=== PATIENT | female | born 1970 | race Caucasian/White ===

== ENCOUNTER 2017-07-25 20:02 | Emergency (ER) | payer OTHER ==
[~2017-07-25] VITALS: Ht 170.2 cm; Wt 61.2 kg
[~2017-07-25 20:02] MED LIST: HYCET 7.5 MG-3473 ML PO
[2017-07-25] MEDS ORDERED: MEDROXYPROGESTE10 MG PO (20:50)
[2017-07-25 21:15] VITALS: BP 108/56
== END 2017-07-25 21:17 | disposition home or self-care (01) ==
LOC: M.ERS 20:02
DX: N93.8 Other specified abnormal uterine and vaginal bleeding (principal); Z88.0 Allergy status to penicillin

== ENCOUNTER 2018-03-22 17:00 | Emergency (ER) | payer OTHER ==
[~2018-03-22] VITALS: Ht 170.2 cm; Wt 65.8 kg
[~2018-03-22 17:00] MED LIST changes: +MEDROXYPROGESTE10 MG PO
[2018-03-22] MEDS ORDERED: CIPRO250 M1 PO (17:13)
[2018-03-22 17:27] LABS: URINE BILIRUBIN NEGATIVE (Negative); URINE BLOOD 2+ (Negative); URINE CLARITY CLEAR; URINE COLOR YELLOW; URINE GLUCOSE-RANDOM NEGATIVE (Negative); URINE KETONES NEGATIVE (Negative); URINE LEUKOCYTES-REFLEX NEGATIVE (Negative); URINE NITRITE-REFLEX NEGATIVE (Negative); URINE PROTEIN NEGATIVE (Negative); URINE SPECIFIC GRAVITY >= 1.030 (1.005-1.030); URINE UROBILINOGEN 0.2 E.U./dl (0.2-1.0)
[2018-03-22 17:29] LABS: ABSOLUTE EOSINOPHILS 0.2 thou/uL (0.0-0.7); ABSOLUTE LYMPHOCYTES 2.2 thou/uL (0.8-5.3); ABSOLUTE MONOCYTES 0.3 thou/uL (0.0-1.2); ABSOLUTE NEUTROPHILS 2.8 thou/uL (1.6-8.1); BASOPHILS 0.6 %; HEMATOCRIT 39.1 % (37.0-47.0); LYMPHOCYTES 39.2 %; MCH 22.5 pg (26.0-34.0); MCHC 30.8 g/dL (28.0-37.0); MCV 73.1 fL (80.0-100.0); MONOCYTES 6.2 %; MPV 8.5 fl. (7.2-11.1); NUCLEATED RBCS 0 /100WBC; PLATELET COUNT* 287 thou/uL (150-400); RBC 5.35 mil/uL (4.20-5.00); WBC 5.6 thou/uL (4.0-11.0)
[2018-03-22 17:35] LABS: SQUAMOUS >10 Many /LPF (0-3)
[2018-03-22 17:36] LABS: URINE RBC 3-10 Few /HPF (0-2); URINE WBC-REFLEX 0-5 Rare /HPF (0-5)
[2018-03-22 17:37] LABS: BACTERIA-REFLEX 1-9 Few /HPF (None Seen); CASTS None Seen /LPF (None Seen); CRYSTALS None Seen /LPF (None Seen); MUCUS >6 Heavy strn/LPF (None Seen)
[2018-03-22 17:38] LABS: CREATININE 0.7 mg/dL (0.6-1.3); POTASSIUM 3.4 mmol/L (3.5-5.1)
[2018-03-22 17:43] LABS: ALBUMIN 3.8 g/dL (3.4-5.0); TOTAL BILIRUBIN 0.2 mg/dL (<0.1-1.0); TOTAL PROTEIN 6.9 g/dL (6.4-8.2)
[2018-03-22 18:17] LABS: PLATELET ESTIMATE ADEQUATE
[2018-03-22 18:18] LABS: ANISOCYTOSIS 2+; MICROCYTES 1+; OVALOCYTES 1+
[2018-03-22 18:19] LABS: HYPOCHROMASIA 1+
[2018-03-22] MEDS ORDERED: NORCO 5-325 TA1 EACH PO (18:37)
[2018-03-22 18:52] VITALS: BP 145/76
== END 2018-03-22 18:49 | disposition home or self-care (01) ==
LOC: M.ERS 17:00
PROVIDERS: Physician Assistant
DX: R10.31 Right lower quadrant pain (principal); R10.32 Left lower quadrant pain; F17.200 Nicotine dependence, unspecified, uncomplicated; Z90.710 Acquired absence of both cervix and uterus; Z88.0 Allergy status to penicillin; Z88.1 Allergy status to other antibiotic agents; Z88.2 Allergy status to sulfonamides